=== PATIENT | male | born 1995 | race Caucasian/White ===

== ENCOUNTER 2019-11-29 17:02 | Emergency (ER) | payer OTHER, SELFPAY ==
[2019-11-29 17:05] VITALS: BP 145/98; PULSE 88; RESP 20; TEMP 36.6; O2SAT 99
--- NOTE | 2019-11-29 17:20 | ED.URI ---
HPI - URI/Sore Throat General Chief Complaint: Upper Respiratory Infection Stated Complaint: cough/drainage Time Seen by Provider: 11/29/19 17:20 Source: patient and RN notes reviewed Mode of arrival: ambulatory Limitations: no limitations History of Present Illness HPI Narrative: 25 male presents with concern for 9-day history of cough, productive cough, occasional shortness of breath. He denies fever, body aches. Reports nighttime sinus congestion, occasional sinus drainage. He reports he has been taking Mucinex DM and using an albuterol inhaler as needed for shortness of breath. MD elicited complaint: cough Related Data Home Medications Medication Instructions Recorded Confirmed albuterol sulfate [ProAir HFA] INHALATION 11/29/19 buspirone mg 11/29/19 cetirizine [Zyrtec] 10 mg PO DAILY 11/29/19 11/29/19 citalopram mg 11/29/19 diclofenac sodium PO 11/29/19 lisinopril 11/29/19 metoprolol succinate PO 11/29/19 omeprazole 11/29/19 Allergies Allergy/AdvReac Type Severity Reaction Status Date / Time amoxicillin Allergy Unknown HIVES Verified 06/02/19 16:07 clavulanic acid Allergy Unknown HIVES Verified 06/02/19 16:06 Penicillins Allergy Unknown RASH Verified 06/02/19 16:06 Review of Systems Review of Systems: Narrative: CONSTITUTIONAL: Denies malaise, chills, sweats, or fever. EYES: Denies visual changes, redness, or discharge. ENT: Reports rhinorrhea, congestion. Denies sinus pain, otalgia and sore throat. CARDIOVASCULAR: Denies chest pain, palpitations, or edema. RESPIRATORY: Reports productive cough, occasional dyspnea. GASTROINTESTINAL: Denies abdominal pain, nausea, vomiting, diarrhea SKIN: Denies rash or itching. MUSCULOSKELETAL: Denies myalgia. NEUROLOGIC: Denies headache. All systems reviewed & are unremarkable except as noted in HPI and below PMFSH Comments At time of signature, agree with nursing past medical, surgical, social and family history. There is no relevant family history pertinent to the presenting complaint Exam Narrative: Exam Narrative: GENERAL: Well-appearing, well-nourished, and in no acute distress. HEAD: Normocephalic EYES: PERRLA, conjunctivae clear ENT: Nares clear, turbinates edematous and erythematous, clear discharge. Mucous membranes moist. TM pearly dee with dull light reflex bilaterally; no tragal tenderness. Oropharynx erythematous without lesions. Tonsils enlarged and without exudate, no drooling, no hoarseness, no trismus, uvula midline. NECK: Supple. No lymphadenopathy CHEST: Clear to auscultation, breath sounds equal. No wheezing, rhonchi, rales, or stridor. No respiratory distress, speaks in full sentences. Cough noted HEART: Regular rate and rhythm. No murmur heard. SKIN: Warm, dry, no rash. NEURO: Alert and oriented x3. PSYCH: Normal mood and affect Course Course Emergency Course: Patient is aware of diagnosis, understands and agrees to treatment plan. Anticipatory guidance given. Patient agrees to follow-up as directed and is aware of reasons to seek care at the emergency department. Portions of this record may have been created with voice recognition software Vital Signs Vital signs: Vital Signs Temperature 97.9 F 11/29/19 17:05 Pulse Rate 88 11/29/19 17:05 Respiratory Rate 20 11/29/19 17:05 Blood Pressure 145/98 H 11/29/19 17:05 Pulse Oximetry 99 11/29/19 17:05 Temperature 97.9 F 11/29/19 17:05 Pulse Rate 88 11/29/19 17:05 Respiratory Rate 20 11/29/19 17:05 Blood Pressure 145/98 H 11/29/19 17:05 Pulse Oximetry 99 11/29/19 17:05 Reviewed. Patient has current diagnosis of hypertension MDM - URI/Sore Throat MDM Narrative Medical decision making narrative: Differential diagnosis considered: Strep pharyngitis, allergic rhinitis, upper respiratory tract infection, sinusitis, rhinosinusitis, nasopharyngitis. viral pharyngitis, otitis media, otitis externa, pneumonia, bronchitis, viral cough syndrome, viral syndrome, and inf
== END 2019-11-29 17:38 | disposition home or self-care (01) ==
PROVIDERS: Emergency Provider Nurse Practitioner; PCP Family Medicine
DX: J06.9 Acute upper respiratory infection, unspecified (principal); I10 Essential (primary) hypertension
CPT/HCPCS: 99213; G0463

== ENCOUNTER 2020-01-05 10:10 | Outpatient (CLI) | payer OTHER, SELFPAY ==
--- NOTE | 2020-01-05 | EST_ITS ---
Patient Info Name: Jonel Tirado Age: 24 years : 1995 Gender: Male Ht: 74 in Wt: 300 lbs BSA: 2.72 m2 Exam Date: 01/05/2020 10:53 AM Patient Status: Outpatient Admit Date: 01/05/2020 Staff Ordering Physician: Aries Wiggins MD Attending Provider: Aries Wiggins MD Exercise Technologist: Destin Jarvis RDCS, RT Exercise Physician: Landen Allen DO Exam Type: CA stress test treadmill Study Info A treadmill exercise stress test was performed. Summary 1. 1. Negative Morgan exercise stress test for ischemic ST changes by ECG criteria. However, he achieved only 78% MPHR for age group which decreases sensitivity of the test. 2. 2. Reduced functional capacity, achieving 11 METs of workload. 3. 3. Baseline hypertension with hypertensive response to exercise. 4. 4. Appropriate HR response to exercise. 5. 5. Appropriate HR recovery at 1 minute post exercise. 6. 6. No imaging with stress testing. 7. 7. Patient informed of the above results. Protocol: Morgan Stress ECG Details Stage: REST Duration (min): 1 min : 12 sec Speed (mph): 0.0 Grade (%): 0 HR (bpm): 78 SBP (mmHg): 141 DBP (mmHg): 85 METS: --- Stage: STAGE 1 Duration (min): 0 min : 33 sec Speed (mph): 1.7 Grade (%): 10 HR (bpm): 92 SBP (mmHg): 141 DBP (mmHg): 85 METS: --- Stage: STAGE 1 Duration (min): 1 min : 0 sec Speed (mph): 1.7 Grade (%): 10 HR (bpm): 98 SBP (mmHg): 141 DBP (mmHg): 85 METS: --- Stage: STAGE 1 Duration (min): 2 min : 0 sec Speed (mph): 1.7 Grade (%): 10 HR (bpm): 101 SBP (mmHg): 141 DBP (mmHg): 85 METS: --- Stage: STAGE 1 Duration (min): 3 min : 0 sec Speed (mph): 1.7 Grade (%): 10 HR (bpm): 102 SBP (mmHg): 148 DBP (mmHg): 84 METS: --- Stage: STAGE 2 Duration (min): 1 min : 0 sec Speed (mph): 2.5 Grade (%): 12 HR (bpm): 111 SBP (mmHg): 148 DBP (mmHg): 84 METS: --- Stage: STAGE 2 Duration (min): 2 min : 0 sec Speed (mph): 2.5 Grade (%): 12 HR (bpm): 119 SBP (mmHg): 172 DBP (mmHg): 67 METS: --- Stage: STAGE 2 Duration (min): 3 min : 0 sec Speed (mph): 2.5 Grade (%): 12 HR (bpm): 121 SBP (mmHg): 172 DBP (mmHg): 67 METS: --- Stage: STAGE 3 Duration (min): 1 min : 0 sec Speed (mph): 3.4 Grade (%): 14 HR (bpm): 133 SBP (mmHg): 124 DBP (mmHg): 73 METS: --- Stage: STAGE 3 Duration (min): 2 min : 0 sec Speed (mph): 3.4 Grade (%): 14 HR (bpm): 139 SBP (mmHg): 124 DBP (mmHg): 73 METS: --- Stage: STAGE 3 Duration (min): 3 min : 0 sec Speed (mph): 3.4 Grade (%): 14 HR (bpm): 145 SBP (mmHg): 124 DBP (mmHg): 73 METS: --- Stage: STAGE 4 Duration (min): 0 min : 39 sec Speed (mph): 4.2 Grade (%): 16 HR (bpm): 154 SBP (mmHg): 124 DBP (mmHg): 73 METS: ---
== END 2020-01-05 10:11 | disposition home or self-care (01) ==
PROVIDERS: PCP Family Medicine; Visit Provider Family Medicine
DX: R06.02 Shortness of breath (principal)
CPT/HCPCS: 93017

== ENCOUNTER 2020-05-10 09:52 | Outpatient (CLI) | payer OTHER, SELFPAY ==
--- NOTE | ~2020-05-10 | US_ITS ---
EXAMINATION: US retroperitoneal duplex ltd DATE: 05/10/2020 10:56 INDICATION: Hypertension. TECHNIQUE: Multiple grayscale, color Doppler, and pulsed Doppler images of the kidneys and renal evie corine were obtained. COMPARISON: None. FINDINGS: The aorta peak systolic velocity is 144 cm/s. The right renal artery peak systolic velocity is 163 cm /s in the proximal segment, 71 cm/s in the mid segment, and 107 cm/s in the distal segment. The left renal artery peak systolic velocity is 71 cm/s in the proximal segment, 74 cm/s in the mid segment, a nd 53 cm/s in the distal segment. IMPRESSION: 1. No Doppler evidence of renal artery stenosis. Reviewed, dictated and finalized at location A.
--- NOTE | ~2020-05-10 | US_ITS ---
EXAMINATION: US renal BI DATE: 05/10/2020 10:57 INDICATION: Uncontrolled hypertension. TECHNIQUE: Multiple ultrasound grayscale images of the kidneys were obtained. COMPARISON: None. FINDINGS: The right kidney measures 11.5 x 5.6 x 5.9 cm. The left kidney measures 10.8 x 5.8 x 5.3 cm. The kidn eys demonstrate normal parenchymal echogenicity. There is no hydronephrosis. The bladder is normal. IMPRESSION: 1. Normal kidneys. No hydronephrosis. Reviewed, dictated and finalized at location A.
== END 2020-05-10 09:53 | disposition home or self-care (01) ==
PROVIDERS: PCP Family Medicine; Visit Provider Internal Medicine Cardiovascular Disease
DX: I10 Essential (primary) hypertension (principal)
CPT/HCPCS: 76775; 93976